=== PATIENT | male | born 1965 | race Asian ===

== ENCOUNTER 2017-02-27 12:46 | Outpatient (CLI) | payer OTHER | END 2017-02-27 12:49 | disposition short-term general hospital (02) | LOC: AMB 12:46 | DX: R51 Headache (principal); I10 Essential (primary) hypertension | CPT/HCPCS: A0425; A0427 ==

== ENCOUNTER 2017-02-27 12:53 | Emergency (ER) | payer OTHER ==
[~2017-02-27] VITALS: Ht 177.8 cm; Wt 63.5 kg
[2017-02-27 13:02] VITALS: BP 187/111; TEMP 98.1
[2017-02-27 13:33] LABS: PLATELET COUNT 257 K/uL (142-355)
[2017-02-27 13:40] LABS: POTASSIUM 3.7 mmol/L (3.6-5.2); SODIUM 134 mmol/L (136-145)
== END 2017-02-27 15:25 | disposition home or self-care (01) ==
LOC: ED 12:53
DX: I10 Essential (primary) hypertension (principal); R51 Headache
CPT/HCPCS: 80053; 85027; 93005; 96361; 96374; 96375; 99284; J1100; J1200; J1885; J2405; J3490

== ENCOUNTER 2017-03-20 22:58 | Emergency (ER) | payer OTHER ==
[~2017-03-20] VITALS: Ht 177.8 cm; Wt 63.5 kg
[2017-03-21 00:20] VITALS: BP 183/113; TEMP 98.3
== END 2017-03-21 00:21 | disposition home or self-care (01) ==
LOC: ED 22:58
DX: R51 Headache (principal); I10 Essential (primary) hypertension
CPT/HCPCS: 96374; 99283; J2175; J2550

== ENCOUNTER 2017-04-07 05:40 | Outpatient (CLI) | payer OTHER | END 2017-04-07 05:45 | disposition short-term general hospital (02) | LOC: AMB 05:40 | DX: R10.84 Generalized abdominal pain (principal); T37.0X2A Poisoning by sulfonamides, intentional self-harm, initial encounter | CPT/HCPCS: A0425; A0427 ==

== ENCOUNTER 2017-04-07 05:50 | Emergency (ER) | payer OTHER ==
[~2017-04-07] VITALS: Ht 177.8 cm; Wt 59.0 kg
[2017-04-07 06:14] LABS: PLATELET COUNT 283 K/uL (142-355)
[2017-04-07 06:22] LABS: POTASSIUM 2.9 mmol/L (3.6-5.2); SODIUM 136 mmol/L (136-145)
[2017-04-07 12:45] VITALS: BP 143/93; TEMP 98
== END 2017-04-07 15:45 | disposition other institution (70) ==
LOC: ED 05:50
DX: F32.89 Other specified depressive episodes (principal); R45.851 Suicidal ideations; T37.0X2A Poisoning by sulfonamides, intentional self-harm, initial encounter
CPT/HCPCS: 36415; 51702; 80053; 80307; 80320; 80329; 82550; 83605; 84484; 85027; 99285; G0479

== ENCOUNTER 2017-04-21 10:15 | Emergency (ER) | payer OTHER ==
[~2017-04-21] VITALS: Ht 177.8 cm; Wt 63.5 kg
[2017-04-21 12:12] LABS: PLATELET COUNT 280 K/uL (142-355)
[2017-04-21 12:25] LABS: POTASSIUM 3.6 mmol/L (3.6-5.2); SODIUM 135 mmol/L (136-145)
[2017-04-23 05:26] VITALS: TEMP 98
[2017-04-23 13:01] VITALS: BP 138/82
== END 2017-04-23 13:03 | disposition other institution (70) ==
LOC: ED 10:15
PROVIDERS: Emergency Medicine
DX: R45.851 Suicidal ideations (principal); F29 Unspecified psychosis not due to a substance or known physiological condition
CPT/HCPCS: 36415; 80053; 80307; 80320; 80329; 81000; 85027; 99285; G0479

== ENCOUNTER 2017-07-21 11:56 | Emergency (ER) | payer OTHER ==
[~2017-07-21] VITALS: Ht 177.8 cm; Wt 68.0 kg
[2017-07-21 12:03] VITALS: TEMP 98.7
[2017-07-21 12:25] LABS: PLATELET COUNT 272 K/uL (142-355)
[2017-07-21 12:30] LABS: POTASSIUM 4.7 mmol/L (3.6-5.2); SODIUM 137 mmol/L (136-145)
[2017-07-21 15:36] VITALS: BP 123/80
== END 2017-07-21 15:36 | disposition home or self-care (01) ==
LOC: ED 11:56
DX: R51 Headache (principal); F19.10 Other psychoactive substance abuse, uncomplicated; I10 Essential (primary) hypertension; W01.10XA Fall on same level from slipping, tripping and stumbling with subsequent striking against unspecified object, initial encounter
CPT/HCPCS: 36415; 80053; 80307; 85027; 99283; G0479